=== PATIENT | male | born 1955 ===

== ENCOUNTER → 2018-04-16 07:58 | Outpatient (CLI) | payer OTHER, SELFPAY ==
[2018-04-16 08:31] LABS: Add Manual Diff / Slide Review NO; Basophils Percent Auto 1.4 % (0-2); Eosinophils Percent Auto 3.5 % (2-4); Hematocrit 42.7 % (41-53); Hemoglobin 14.5 g/dL (13.5-17.5); Lymphocytes Percent Auto 32.8 % (25-40); Mean Corpuscular Volume 91.2 fL (80-100); Monocytes Percent Auto 13.7 % (3-14); Neutrophils Absolute Auto 2400 /uL (3000-5900); Neutrophils Percent Auto 48.6 % (50-75); Platelet Count 146 X10^3/uL (150-400); Red Blood Cell Count 4.68 X10^6/uL (4.5-5.9); Red Cell Distribution Width 13.2 % (11.6-14.8); White Blood Cell Count 4.9 X10^3/uL (4.5-11.0)
[2018-04-16 08:45] LABS: Alanine Aminotransferase 29 IU/L (21-72); Albumin 4.2 g/dL (3.5-5.0); Albumin Globulin Ratio 1.5 (1.0-2.8); Alkaline Phosphatase 47 U/L (38-126); Aspartate Aminotransferase 26 IU/L (17-59); BUN Creatinine Ratio 14.5 (6-22); Bilirubin Total 0.5 mg/dL (0.2-1.3); Blood Urea Nitrogen 16 mg/dL (9-20); Carbon Dioxide 29 mmol/L (22-32); Chloride 102 mmol/L (98-107); Cholesterol 192 mg/dL (140-199); Estimated Glomerular Filt Rate > 60.0 mL/min (>60); Globulin 2.8 g/dL (1.7-4.1); Glucose 100 mg/dL (80-110); HDL Cholesterol 45 mg/dL (40-60); HEMOLYSIS < 15 (0-50); LDL Cholesterol Calculated 126 mg/dL (<100); Potassium 4.2 mmol/L (3.4-5.1); Sodium 140 mmol/L (137-145); Triglycerides 105 mg/dL (35-150)
[2018-04-16 09:53] LABS: TSH w/ Reflex to FT4 3.57 uIU/mL (0.47-4.68)
== END ==
PROVIDERS: PCP Family Medicine; Visit Provider Family Medicine
DX: E03.9 Hypothyroidism, unspecified (principal); I10 Essential (primary) hypertension
CPT/HCPCS: 80053; 80061; 84443; 85025

== ENCOUNTER → 2018-04-19 09:59 | Outpatient (CLI) | payer OTHER, SELFPAY ==
[2018-04-19 11:37] LABS: Prostate Specific Antigen Scrn 1.01 ng/mL (0.1-4.0)
== END ==
PROVIDERS: Family Provider Family Medicine; PCP Family Medicine; Visit Provider Family Medicine
DX: R35.1 Nocturia (principal)
CPT/HCPCS: 36415; G0103

== ENCOUNTER → 2018-05-04 08:14 | Outpatient (CLI) | payer OTHER, SELFPAY ==
--- NOTE | 2018-05-04 08:15 | DI.US.S_ITS ---
PROCEDURE: US THYROID INDICATIONS: hypothyroid TECHNIQUE: Real-time scanning was performed of the thyroid gland, with image documentation. COMPARISON: None. FINDINGS: Right: Thyroid lobe measures 1.3 x 1.4 x 3.9 cm, and is homogeneous in echotexture. Left: Thyroid lobe measures 1.2 x 1.3 x 3.7 cm, and is homogenous in echotexture. Isthmus: 4 mm thick. IMPRESSION: 1. Thyroid is normal in size. No measurable nodules on either side. Echotexture is heterogeneous. ACR TI-RADS definitions and recommendations: TI-RADS 1 (benign): 0 points. FNA not needed. TI-RADS 2 (not suspicious): 2 points. FNA not needed. TI-RADS 3 (mildly suspicious): 3 points. * FNA if 2.5 cm or larger, follow up if 1.5 cm or larger (at 1, 3, and 5 years). TI-RADS 4 (moderately suspicious): 4-6 points. * FNA if 1.5 cm or larger, follow up if 1 cm or larger (at 1, 2, 3, and 5 years). TI-RADS 5 (highly suspicious): 7 points or more. * FNA if 1 cm or larger, follow up if 0.5 cm or larger (every year for 5 years). Dictated by: Bola Barrera M.D. on 05/04/2018 at 10:26 Approved by: Bola Barrera M.D. on 05/04/2018 at 10:28
== END ==
PROVIDERS: Family Provider Family Medicine; PCP Family Medicine; Visit Provider Family Medicine
DX: E03.9 Hypothyroidism, unspecified (principal)
CPT/HCPCS: 76536

== ENCOUNTER → 2019-04-05 07:26 | Outpatient (CLI) | payer OTHER, SELFPAY ==
[2019-04-05 08:56] LABS: Hematocrit 41.5 % (41-53); Hemoglobin 14.2 g/dL (13.5-17.5); Mean Corpuscular HGB Conc 34.3 % (30-36); Mean Corpuscular Hemoglobin 31.3 PG (26-34); Mean Corpuscular Volume 91.4 fL (80-100); Red Blood Cell Count 4.54 X10^6/uL (4.5-5.9); Red Cell Distribution Width 13.4 % (11.6-14.8); White Blood Cell Count 5.8 X10^3/uL (4.5-11.0)
[2019-04-05 08:57] LABS: Alanine Aminotransferase 21 IU/L (21-72); Albumin 4.3 g/dL (3.5-5.0); Albumin Globulin Ratio 1.6 (1.0-2.8); Alkaline Phosphatase 47 U/L (38-126); Aspartate Aminotransferase 33 IU/L (17-59); BUN Creatinine Ratio 13.3 (6-22); Bilirubin Total 0.8 mg/dL (0.2-1.3); Blood Urea Nitrogen 16 mg/dL (9-20); Calcium 8.9 mg/dL (8.4-10.2); Carbon Dioxide 29 mmol/L (22-32); Chloride 102 mmol/L (98-107); Cholesterol 179 mg/dL (140-199); Estimated Glomerular Filt Rate > 60.0 mL/min (>60); Globulin 2.7 g/dL (1.7-4.1); Glucose 94 mg/dL (80-110); HDL Cholesterol 47 mg/dL (40-60); HEMOLYSIS < 15 (0-50); LDL Cholesterol Calculated 115 mg/dL (<100); Potassium 3.9 mmol/L (3.4-5.1); Sodium 139 mmol/L (137-145); Triglycerides 87 mg/dL (35-150)
[2019-04-05 09:49] LABS: Creatinine Urine Random 129.6 mg/dL
[2019-04-05 09:52] LABS: Microalbumi Creatinin Ratio Ur 4.6 ug/mg CR (<30); Microalbumin Urine Random < 0.6 mg/dL (0-1.6)
[2019-04-05 10:23] LABS: Thyroid Stimulating Hormone 4.03 uIU/mL (0.47-4.68)
== END ==
PROVIDERS: Visit Provider Nurse Practitioner Family
DX: I10 Essential (primary) hypertension (principal); E78.2 Mixed hyperlipidemia; E03.9 Hypothyroidism, unspecified
CPT/HCPCS: 36415; 80053; 80061; 82043; 82570; 84443; 85027

== ENCOUNTER → 2020-04-18 08:22 | Outpatient (CLI) | payer OTHER, SELFPAY ==
[2020-04-18 09:43] LABS: HEMOLYSIS < 15 (0-50)
[2020-04-18 09:44] LABS: Blood Urea Nitrogen 23 mg/dL (9-20); Calcium 9.3 mg/dL (8.4-10.2); Carbon Dioxide 29 mmol/L (22-32); Chloride 98 mmol/L (98-107); Cholesterol 196 mg/dL (140-199); Estimated Glomerular Filt Rate > 60.0 mL/min (>60); Glucose 92 mg/dL (80-110); HDL Cholesterol 46 mg/dL (40-60); LDL Cholesterol Calculated 129 mg/dL (<100); Sodium 135 mmol/L (137-145); Triglycerides 107 mg/dL (35-150)
[2020-04-18 09:57] LABS: Hematocrit 43.3 % (41-53); Hemoglobin 14.6 g/dL (13.5-17.5); Mean Corpuscular HGB Conc 33.8 % (30-36); Mean Corpuscular Hemoglobin 31.2 PG (26-34); Mean Corpuscular Volume 92.3 fL (80-100); Red Blood Cell Count 4.69 X10^6/uL (4.5-5.9); Red Cell Distribution Width 13.1 % (11.6-14.8); White Blood Cell Count 5.6 X10^3/uL (4.5-11.0)
[2020-04-18 10:42] LABS: Thyroid Stimulating Hormone 4.73 uIU/mL (0.47-4.68)
== END ==
PROVIDERS: PCP Nurse Practitioner Family; Referring Provider Nurse Practitioner Family; Visit Provider Nurse Practitioner Family
DX: Z00.00 Encounter for general adult medical examination without abnormal findings (principal); E78.2 Mixed hyperlipidemia; E03.9 Hypothyroidism, unspecified; I10 Essential (primary) hypertension
CPT/HCPCS: 36415; 80048; 80061; 84443; 85027

== ENCOUNTER → 2020-04-22 07:35 | Outpatient (CLI) | payer OTHER, SELFPAY ==
--- NOTE | 2020-04-22 07:36 | DI.US.S_ITS ---
PROCEDURE: US SCROTUM INDICATIONS: lump right scrotum TECHNIQUE: Real-time scanning was performed of the scrotum and testicles, with image documentation. Color and pulse Doppler interrogation was performed of both testicles. COMPARISON: None. FINDINGS: Right: Testicle is normal in size at 4.4 x 2.0 x 2.8 cm, and homogenous in echotexture. Epididymis is normal in overall size and morphology. No hydrocele or varicoceles. Overlying scrotal skin is normal in thickness. Note is made of a right-sided epididymal cyst measuring 1.9 x 1.8 x 0.9 centimeters Left: Testicle is normal in size at 4.4 x 2.1 x 2.3 cm, and homogeneous in echotexture. Epididymis is normal in overall size and morphology. No hydrocele or varicoceles. Overlying scrotal skin is normal in thickness. Note is made of a left-sided simple 3 x 5 x 5 millimeter epididymal cyst Doppler: Color and pulse Doppler demonstrate normal and symmetric arterial flow in both testicles. IMPRESSION: Bilateral epididymal cysts are present, larger on the right than the left is noted measuring up to 1.9 centimeters on the right. No testicular mass is found, and the epididymal cysts appears simple in character bilaterally. Dictated by: Kehinde Cervantes M.D. on 04/22/2020 at 11:16 Approved by: Kehinde Cervantes M.D. on 04/22/2020 at 11:18
== END ==
PROVIDERS: PCP Nurse Practitioner Family; Referring Provider Nurse Practitioner Family; Visit Provider Nurse Practitioner Family
DX: N50.89 Other specified disorders of the male genital organs (principal); N50.3 Cyst of epididymis
CPT/HCPCS: 76870

== ENCOUNTER → 2020-09-24 07:14 | Outpatient (CLI) | payer OTHER, SELFPAY ==
--- NOTE | 2020-09-24 07:14 | DI.US.S_ITS ---
PROCEDURE: US SCROTUM INDICATIONS: epidydimal cyst TECHNIQUE: Real-time scanning was performed of the scrotum and testicles, with image documentation. Color and pulse Doppler interrogation was performed of both testicles. COMPARISON: [facility], , US SCROTUM, 04/22/2020, 8:08. FINDINGS: Right: Testicle is normal in size at 4.7 x 2.1 x 2.7 cm, and homogenous in echotexture. Epididymal cyst measuring 2.3 x 0.9 x 1.0 cm, previously 1.9 x 1.8 x 0.9 cm No hydrocele or varicoceles. Overlying scrotal skin is normal in thickness. Left: Testicle is normal in size at 4.7 x 1.8 x 2.8 cm, and homogeneous in echotexture. Left epididymal cyst measuring 5 mm, unchanged. No hydrocele or varicoceles. Overlying scrotal skin is normal in thickness. Doppler: Color and pulse Doppler demonstrate normal and symmetric arterial flow in both testicles. IMPRESSION: Grossly unchanged bilateral epididymal cyst/spermatocele. Dictated by: Javier Casper M.D. on 09/24/2020 at 9:40 Approved by: Javier Casper M.D. on 09/24/2020 at 9:42
== END ==
PROVIDERS: PCP Nurse Practitioner Family; Referring Provider Nurse Practitioner Family; Visit Provider Nurse Practitioner Family
DX: N50.3 Cyst of epididymis (principal); N43.40 Spermatocele of epididymis, unspecified
CPT/HCPCS: 76870

== ENCOUNTER → 2021-03-31 10:11 | Outpatient (CLI) | payer OTHER, SELFPAY ==
[2021-03-31 11:41] LABS: Prostate Specific Antigen 1.11 ng/mL (0.10-4.00)
== END ==
PROVIDERS: PCP Nurse Practitioner Family; Referring Provider Specialist; Visit Provider Specialist
DX: N13.8 Other obstructive and reflux uropathy (principal); N40.1 Benign prostatic hyperplasia with lower urinary tract symptoms
CPT/HCPCS: 36415; 84153

== ENCOUNTER → 2021-05-28 08:07 | Outpatient (CLI) | payer OTHER, SELFPAY ==
[2021-05-28 09:03] LABS: Creatinine Urine Random 96.9 mg/dL
[2021-05-28 09:13] LABS: Microalbumin Urine Random < 0.6 mg/dL (0-1.6)
[2021-05-28 09:28] LABS: Alanine Aminotransferase 13 IU/L (<50); Albumin 4.1 g/dL (3.5-5.0); Albumin Globulin Ratio 1.5 (1.0-2.8); Alkaline Phosphatase 59 U/L (38-126); Aspartate Aminotransferase 27 IU/L (17-59); BUN Creatinine Ratio 12.6 (6-22); Bilirubin Total 0.5 mg/dL (0.2-1.3); Blood Urea Nitrogen 14 mg/dL (9-20); Carbon Dioxide 29 mmol/L (22-32); Chloride 104 mmol/L (98-107); Cholesterol 158 mg/dL (140-199); Estimated Glomerular Filt Rate > 60.0 mL/min (>60); Globulin 2.7 g/dL (1.7-4.1); Glucose 97 mg/dL (80-110); HDL Cholesterol 49 mg/dL (40-60); HEMOLYSIS < 15 (0-50); LDL Cholesterol Calculated 97 mg/dL (<100); Potassium 4.5 mmol/L (3.4-5.1); Sodium 138 mmol/L (137-145); Total Protein 6.8 g/dL (6.3-8.2); Triglycerides 59 mg/dL (35-150)
[2021-05-28 10:26] LABS: Free T4, Direct Thyroxine 1.55 ng/dL (0.78-2.19)
[2021-05-28 10:40] LABS: Thyroid Stimulating Hormone 2.72 uIU/mL (0.47-4.68)
[2021-05-28 15:42] LABS: Hematocrit 42.5 % (41-53); Hemoglobin 14.1 g/dL (13.5-17.5); Mean Corpuscular HGB Conc 33.1 % (30-36); Mean Corpuscular Hemoglobin 30.6 PG (26-34); Mean Corpuscular Volume 92.4 fL (80-100); Platelet Count 164 X10^3/uL (150-400); Red Cell Distribution Width 13.1 % (11.6-14.8); White Blood Cell Count 5.5 X10^3/uL (4.5-11.0)
== END ==
PROVIDERS: PCP Nurse Practitioner Family; Referring Provider Nurse Practitioner Family; Visit Provider Nurse Practitioner Family
DX: Z00.00 Encounter for general adult medical examination without abnormal findings (principal); E03.9 Hypothyroidism, unspecified; I10 Essential (primary) hypertension; E78.2 Mixed hyperlipidemia
CPT/HCPCS: 36415; 80053; 80061; 82043; 82570; 84439; 84443; 85027

== ENCOUNTER → 2021-09-09 15:37 | Outpatient (CLI) | payer OTHER, SELFPAY ==
[2021-09-09 16:51] LABS: Influenza A - CEPHEID Flu A NEGATIVE (NEGATIVE); Influenza B - CEPHEID Flu B NEGATIVE (NEGATIVE)
[2021-09-09 17:03] LABS: COVID19 -Nasal RAPID Negative (Negative)
== END ==
PROVIDERS: PCP Nurse Practitioner Family; Referring Provider Physician Assistant; Visit Provider Physician Assistant
DX: Z20.822 Contact with and (suspected) exposure to COVID-19 (principal); J06.9 Acute upper respiratory infection, unspecified
CPT/HCPCS: 87502; 87635

== ENCOUNTER 2022-08-09 09:50 | Emergency (ER) | payer OTHER, SELFPAY ==
[2022-08-09] VITALS (7 sets, daily range): BP systolic 139–171; BP diastolic 74–87; PULSE 69–105; RESP 20; TEMP 36.4; O2SAT 98–100; BMI 51.5
--- NOTE | 2022-08-09 10:02 | DI.RAD.S_ITS ---
PROCEDURE: XR FINGER LT MIN 2V INDICATIONS: deformity, injury, open wound TECHNIQUE: AP hand, 2 views of the 2nd finger(s) acquired. COMPARISON: None. FINDINGS: Bones: 2nd digit PIP joint dorsal dislocation. Small osseous fragment anterior to the proximal phalangeal head. No suspicious bony lesions. Mild degenerative changes. Soft tissues: Soft tissue swelling at the 2nd digit. No suspicious soft tissue calcifications. IMPRESSION: 2nd digit PIP dorsal dislocation. Probable corner fracture at the 2nd digit middle phalangeal base. Radiographs after relocation may be helpful. Dictated by: Erasmo Perry M.D. on 08/09/2022 at 9:36 Approved by: Erasmo Perry M.D. on 08/09/2022 at 9:40
--- NOTE | 2022-08-09 10:27 | ED.UPPEXIN ---
HPI - Extremity Injury (Upper) General Chief Complaint: Extremity Injury, Upper Stated Complaint: lt pointer injured can see bone Time Seen by Provider: 08/09/22 09:56 Source: patient Mode of arrival: Ambulatory History of Present Illness HPI narrative: 67-year-old male nonsmoker with history of hypothyroid presents with a friend and a chief complaint of an obvious injury to his left index finger suffered just before arrival. He was playing basketball and reached out for a ball and hit the tip of his finger on the ball and now has significant pain with obvious deformity and he is concerned that he can see bone sticking through a laceration. He has inability to move his finger due to mechanical obstruction. His tetanus needs to be updated. He denies any numbness or tingling. He denies other injury. Related Data Previous Rx's Medication Instructions Recorded varicella-zoster glycoE [id number] 0.5 ml IM ONCE #1 ea 04/19/20 adj(PF) 50 mcg/0.5 mL IM susp, kit (Shingrix (PF)) bupropion HCl 100 mg tablet,12 hr 100 mg PO DAILY #90 tabs 06/24/21 sustained-release (Wellbutrin SR) levothyroxine 200 mcg tablet 200 mcg PO DAILY #90 tabs 06/03/22 lisinopril 20 mg tablet 20 mg PO QDAY #90 tabs 06/03/22 levothyroxine 25 mcg tablet 25 mcg PO DAILY #30 tabs 06/29/22 cephalexin 500 mg capsule 500 mg PO Q6H 7 days #28 caps 08/09/22 Allergies Allergy/AdvReac Type Severity Reaction Status Date / Time No Known Drug Allergies Allergy Verified 05/22/21 13:39 Review of Systems Review of Systems Narrative: GENERAL: Denies chills, fatigue, malaise, fever, sweats. HEENT: Denies sinus pain, ear pain, sore throat, difficulty swallowing, dizziness. RESPIRATORY: Denies dyspnea, cough, wheezing, hemoptysis, sputum. CARDIOVASCULAR: Denies chest pain, palpitations, orthopnea, edema, GASTROINTESTINAL: Denies nausea, vomiting, abdominal pain, diarrhea, constipation, melena. : Denies dysuria, frequency, incontinence, hematuria, urinary retention. MUSCULOSKELETAL: See HPI SKIN: See HPI NEUROLOGIC: See HPI PSYCHIATRIC: No concerning psychosocial issues. 12 point review of systems is negative except for those stated above Patient History Medical History Anxiety Bilateral tinnitus BPH w urinary obs/LUTS Conjunctivitis Encounter for screening for malignant neoplasm of prostate Encounter for wellness examination in adult (05/22/21) Epididymal cyst Fever Hearing loss Hypertension Hypothyroidism (~2010) Mixed hyperlipidemia Scrotal mass Surgical History Fractured fibula Family History Father Mitral valve insufficiency, unspecified etiology Fall, initial encounter Aspiration pneumonia, unspecified aspiration pneumonia type, unspecified laterality, unspecified part of lung Bladder cancer Mother Patient's mother is in good health Hypertension Stroke Sister Other specified diabetes mellitus with unspecified complications Patient's sister is in good health Hypertension Social History marital status: number of children: 3 occupational status: employed Smoking Status: Never smoker second hand exposure: Yes (When he was younger) alcohol intake: current (1 glass of wine a night) substance use type: does not use caffeine: Yes Smoking Status: Never smoker alcohol intake frequency: a few times a week Alcohol type: wine Substance Use Type: does not use Exam Narrative Exam Narrative: GEN: AOx3 and in mild distress, GCS 15 EYES: Pupils are equal, round, and reactive to light and accommodation. Extraoccular muscles are intact bilaterally. There is no subconjunctival hemorrhage or exudate. CHEST: Lungs are clear to auscultation bilaterally and free of wheezes, rales, or rhonchi. Heart rate is regular rhythm, there are no murmurs, clicks, rubs, or gallops. There is no chest wall tenderness. ABD: Abdomen is soft and nontender. There is no guarding or rebound. Bowel sounds are normal in all 4 quadrants. There is no mass or organomegaly. EXT: Left index finger with obvious deformity consistent with dislocation, there is a 1 cm laceration on the volar surface with minimal bleeding and visible flexor tendon overlying the PIP. Cap refill less than 2 seconds sensation intact SKIN: Warm, pink, and dry. No erythema or rash Initial Vital Signs Initial Vital Signs: Vital Signs Temperature 97.6 F 08/09/22 09:50 Pulse Rate 105 H 10/30/22 09:50 Respiratory Rate 20 08/09/22 09:50 Blood Pressure 171/84 H 08/09/22 09:50 Pulse Oximetry 99 08/09/22 09:50 Oxygen Delivery Method 08/09/22 09:50 Procedures Laceration Repair Laceration 1: Site: hand Side (If applicable): left Size (cm): 1.0 Description: linear Depth: simple, single layer Pre-repair: wound explored and cleansed with chlorhexadine Skin layer closed with: nylon Skin layer suture size: 4-0 Number of sutures: 3 Technique: simple, interrupted Nerve Block Nerve Block 1: Time out performed: Yes Side: left Nerve Blocks: digital Procedure Successful: Yes Patient Tolerated Procedure: Well Complications: none Orthopedic Joint Reduction Joint #1: Time Out Performed: Yes Side: left Joint Reduction Location: finger Analgesia: nerve block Local Anesthesia: bupivacaine 0.25% Amount of anesthesic used (mL): 6 Technique used: direct manipulation Post-reduction neuro exam: no change Post-reduction vascular: intact Post Reduction X-Ray Obtained: Yes Post Reduction X-Ray Results: reduced Splint Applied: Yes Patient Tolerated Procedure: Well Orthopedic Splinting/Casting Injury #1: Side: left Upper Extremity Injury Location: finger Upper Extremity Immobilizer: aluminum form splint Post splinting neuro exam: intact Post splinting vascular exam: intact Placed by: Nursing Course Orders Ordered: ED Orders 08/09/22 10:02 XR finger LT min 2V Stat 08/09/22 10:35 XR finger LT min 2V Stat Discontinued Medications Bupivacaine HCl (Bupivacaine 0.5% (Pf) Vial) 5 ml SUBCUT NOW ONE Stop: 08/09/22 10:13 Last Admin: 08/09/22 10:52 Dose: 5 ml Diphtheria/Tetanus/Acell Pertussis (Tet,Diph,Pertuss(Acell),Vac/Pf 0.5 Ml Syringe) 0.5 ml IM .ONCE ONE Stop: 08/09/22 10:04 Last Admin: 08/09/22 10:50 Dose: 0.5 ml Consultations Consultation #1: Discussed with on-call orthopedist Dr. Luna, she has reviewed pre and postreduction films and is in agreement with plan to washed thoroughly under sterile conditions and emergency department, loose sutures splint, antibiotics, tetanus update and close follow-up Vital Signs Vital signs: Vital Signs - 8 hr 08/09/22 09:50 08/09/22 09:55 08/09/22 09:56 Temperature 97.6 F Pulse Rate 105 H Respiratory Rate 20 Blood Pressure 171/84 H 171/84 H Pulse Oximetry 99 98 Oxygen Delivery Method Room Air 08/09/22 09:56 08/09/22 10:00 08/09/22 10:00 Temperature Pulse Rate 104 H 98 H Respiratory Rate Blood Pressure 166/83 H Pulse Oximetry 100 98 Oxygen Delivery Method Room Air 08/09/22 10:30 08/09/22 10:30 08/09/22 11:00 Temperature Pulse Rate 75 Respiratory Rate Blood Pressure 144/87 H 139/78 Pulse Oximetry 98 Oxygen Delivery Method 08/09/22 11:00 08/09/22 11:30 08/09/22 11:30 Temperature Pulse Rate 70 69 Respiratory Rate Blood Pressure 154/74 H Pulse Oximetry 99 98 Oxygen Delivery Method MDM - Extremity Injury (Upper) Imaging Data Extremity x-ray #1: Radiologist's Impression: Close Finger X-Ray (Signed) Call,Erasmo - 08/09/22 Finger X-Ray (Signed) Call,Erasmo - 08/09/22 Scrotum Ultrasound (Signed) Javier Casper - 09/24/20 Scrotum Ultrasound (Signed) Kehinde Cervantes - 04/22/20 Thyroid Ultrasound (Signed) Bola Barrera - 05/04/18 [facility]?[place] [address] XRay Report Signed Patient: Sami Kumar MR#: [id number] : 1955 Acct:[id number] Age/Sex: 67 / M Date of Service: 08/09/22 Loc: ED Accession Number: [id number] ?? Procedure: XR finger LT min 2V Ordering Provider: Jean George D.O. PROCEDURE:? XR FINGER LT MIN 2V ? INDICATIONS:? deformity, injury, open wound ? TECHNIQUE:? AP hand, 2 views of the 2nd finger(s) acquired.? ? COMPARISON:? None. ? FINDINGS:? ? Bones:? 2nd digit PIP joint dorsal dislocation.? Small osseous fragment anterior to the proximal phalangeal head.? No suspicious bony lesions.? Mild degenerative changes.? ? Soft tissues:? Soft tissue swelling at the 2nd digit.? No suspicious soft tissue calcifications.? ? IMPRESSION:? 2nd digit PIP dorsal dislocation. Probable corner fracture at the 2nd digit middle phalangeal base. ? Radiographs after relocation may be helpful. ? ? Dictated by: Erasmo Perry M.D. on 08/09/2022 at 9:36 ? ? Approved by: Erasmo Perry M.D. on 08/09/2022 at 9:40 ? Extremity x-ray #2: Radiologist's Impression: [place] [address] XRay Report Signed Patient: Sami Kumar MR#: [id number] : 1955 Acct:[id number] Age/Sex: 67 / M Date of Service: 08/09/22 Loc: ED Accession Number: [id number] ?? Procedure: XR finger LT min 2V Ordering Provider: Jean George D.O. PROCEDURE:? XR FINGER LT MIN 2V ? INDICATIONS:? post reduction ? TECHNIQUE:? AP hand, 2 views of the 2nd finger(s) acquired.? ? COMPARISON:? [facility], CR, XR FINGER LT MIN 2V, 08/09/2022, 10:00. ? FINDINGS:? ? Bones:? Relocation of the 2nd digit PIP joint.? Small osseous fragment at the proximal phalangeal head.? No fracture is appreciated at the middle phalanx.? No suspicious bony lesions.? ? Soft tissues:? No suspicious soft tissue calcifications.? ? IMPRESSION:? Relocation of the 2nd digit PIP joint. ? Possible fracture at the 2nd digit proximal phalangeal head. ? ? Dictated by: Erasmo Perry M.D. on 08/09/2022 at 9:51 ? ? Approved by: Erasmo Perry M.D. on 08/09/2022 at 9:54 ? Discharge Plan Departure Patient Disposition: Home Clinical Impression: Open fracture dislocation of finger Instructions: DI for Open Fracture Activity Restrictions/Additional Instructions: *You have been diagnosed with [left index finger open dislocation with small fracture segment *What to do: *Please continue to take your regular medications as directed. [ x] New medication prescriptions sent to your pharmacy: [[facility]] [ ] New medication written as a paper prescription [x] Tylenol and occasional Motrin for pain *Please follow up with [Jeremy ] of [facility] in 2-3 days, call for an appointment. Let them know you were seen in the Emergency Department and that we ask that you be seen in follow up. We will electronically transmit a record of today's note if your PCP is in our system *Return to Emergency Department if you should have any new, worsening or concerning symptoms, such as [worsening pain, significant swelling, cold extremities, numbness, tingling, weakness or other bothersome symptoms Splint Care: Keep splint clean and dry. Elevated affected body part to decrease swelling. OK to use ice pack on the affected body part. Use for 15-20 minutes each time, for 5-6x per day. If you develop worsening pain, numbness, tingling, discoloration of the affected body part, loosen the splint by loosening the ADALI wrap, and either see your doctor for an urgent re-assessment, or return to the Emergency Department. Return to the Emergency Department for any new or worsening symptoms. Prescriptions: New cephalexin 500 mg capsule 500 mg PO Q6H 7 Days Qty: 28 0RF No Action bupropion HCl [Wellbutrin SR] 100 mg tablet sustained-release 12 hr 100 mg PO DAILY Qty: 90 2RF levothyroxine 200 mcg tablet 200 mcg PO DAILY Qty: 90 3RF lisinopril 20 mg tablet 20 mg PO QDAY Qty: 90 3RF levothyroxine 25 mcg tablet 25 mcg PO DAILY Qty: 30 0RF Rx Instructions: NEED TO ESTABLISH CARE WITH NEW PROVIDER FOR FURTHER REFILLS. 05/26/22 Shingrix (PF) 50 mcg/0.5 mL suspension for reconstitution 0.5 ml IM ONCE Qty: 1 0RF Rx Instructions: as a single dose Referrals: Rachele Luna MD [Physician] - Carlos Mistry DO [Primary Care Provider] -
--- NOTE | 2022-08-09 10:35 | DI.RAD.S_ITS ---
PROCEDURE: XR FINGER LT MIN 2V INDICATIONS: post reduction TECHNIQUE: AP hand, 2 views of the 2nd finger(s) acquired. COMPARISON: [facility], , XR FINGER LT MIN 2V, 08/09/2022, 10:00. FINDINGS: Bones: Relocation of the 2nd digit PIP joint. Small osseous fragment at the proximal phalangeal head. No fracture is appreciated at the middle phalanx. No suspicious bony lesions. Soft tissues: No suspicious soft tissue calcifications. IMPRESSION: Relocation of the 2nd digit PIP joint. Possible fracture at the 2nd digit proximal phalangeal head. Dictated by: Erasmo Perry M.D. on 08/09/2022 at 9:51 Approved by: Erasmo Perry M.D. on 08/09/2022 at 9:54
[2022-08-09] MEDS: TET,DIPH,PERTUSS(ACELL),VAC/PF 0.5 ML SYRINGE IM (10:50)
[2022-08-09] MEDS: BUPIVACAINE 0.5% (PF) VIAL 5 ML SUBCUT (10:52)
--- NOTE | 2022-08-09 11:16 | PC.NURSE ---
Pt states he was at the gym today playing basketball and injured left-hand finger when catching the basketball.
== END 2022-08-09 11:44 | disposition home or self-care (01) ==
PROVIDERS: Emergency Provider Emergency Medicine; PCP Family Medicine
DX: S62.611A Displaced fracture of proximal phalanx of left index finger, initial encounter for closed fracture (principal); S61.211A Laceration without foreign body of left index finger without damage to nail, initial encounter; W21.05XA Struck by basketball, initial encounter; Z23 Encounter for immunization
CPT/HCPCS: 12001; 26755; 64450; 73140; 99283; 99284; 90715

== ENCOUNTER → 2022-10-08 07:25 | Outpatient (CLI) | payer OTHER, SELFPAY ==
[2022-10-08 08:27] LABS: Basophils Absolute Auto 100 /uL (0-100); Basophils Percent Auto 1.2 % (0-2); Eosinophils Absolute Auto 200 /uL (0-450); Eosinophils Percent Auto 2.8 % (2-4); Hematocrit 42.6 % (41-53); Hemoglobin 14.5 g/dL (13.5-17.5); Lymphocytes Absolute Auto 1500 /uL (1100-4500); Lymphocytes Percent Auto 25.4 % (25-40); Mean Corpuscular HGB Conc 34.1 % (30-36); Mean Corpuscular Volume 90.9 fL (80-100); Monocytes Absolute Auto 1100 /uL (0-900); Monocytes Percent Auto 18.3 % (3-14); Neutrophils Absolute Auto 3100 /uL (1500-7000); Neutrophils Percent Auto 52.3 % (50-75); Red Blood Cell Count 4.68 X10^6/uL (4.5-5.9); Red Cell Distribution Width 13.5 % (11.6-14.8); White Blood Cell Count 5.9 X10^3/uL (4.5-11.0)
[2022-10-08 08:29] LABS: Add Manual Diff / Slide Review SLIDE REVIEW
[2022-10-08 08:44] LABS: Alanine Aminotransferase 18 IU/L (<50); Albumin 4.2 g/dL (3.5-5.0); Albumin Globulin Ratio 1.7 (1.0-2.8); Alkaline Phosphatase 52 U/L (38-126); Aspartate Aminotransferase 27 IU/L (17-59); BUN Creatinine Ratio 11.9 (6-22); Bilirubin Total 0.7 mg/dL (0.2-1.3); Blood Urea Nitrogen 14 mg/dL (9-20); Calcium 8.7 mg/dL (8.4-10.2); Carbon Dioxide 29 mmol/L (22-32); Chloride 99 mmol/L (98-107); Cholesterol 206 mg/dL (140-199); Estimated Glomerular Filt Rate > 60 mL/min (>60); Globulin 2.5 g/dL (1.7-4.1); Glucose 92 mg/dL (80-110); HDL Cholesterol 54 mg/dL (40-60); HEMOLYSIS < 15 (0-50); LDL Cholesterol Calculated 131 mg/dL (<100); Potassium 4.4 mmol/L (3.4-5.1); Sodium 136 mmol/L (137-145); Total Protein 6.7 g/dL (6.3-8.2); Triglycerides 106 mg/dL (35-150)
[2022-10-08 08:57] LABS: Free T3, Triiodothyronine Free 3.71 pg/mL (2.77-5.27); Free T4, Direct Thyroxine 1.52 ng/dL (0.78-2.19)
[2022-10-08 09:12] LABS: Thyroid Stimulating Hormone 6.12 uIU/mL (0.47-4.68)
[2022-10-08 09:41] LABS: RBC Morphology Normal Morphology
== END ==
PROVIDERS: PCP Family Medicine; Referring Provider Family Medicine; Visit Provider Family Medicine
DX: Z00.00 Encounter for general adult medical examination without abnormal findings (principal); E03.9 Hypothyroidism, unspecified; E78.2 Mixed hyperlipidemia; I10 Essential (primary) hypertension
CPT/HCPCS: 36415; 80053; 80061; 84439; 84443; 84481; 85025

== ENCOUNTER → 2022-11-21 07:51 | Outpatient (CLI) | payer OTHER, SELFPAY ==
[2022-11-21 10:01] LABS: TSH w/ Reflex to FT4 0.89 uIU/mL (0.47-4.68)
== END ==
PROVIDERS: PCP Family Medicine; Referring Provider Family Medicine; Visit Provider Family Medicine
DX: E03.9 Hypothyroidism, unspecified (principal)
CPT/HCPCS: 36415; 84443

== ENCOUNTER → 2023-11-27 08:06 | Outpatient (CLI) | payer OTHER, SELFPAY ==
[2023-11-27 09:41] LABS: Alanine Aminotransferase 23 IU/L (<50); Albumin 4.1 g/dL (3.5-5.0); Albumin Globulin Ratio 1.3 (1.0-2.8); Alkaline Phosphatase 55 U/L (38-126); Aspartate Aminotransferase 28 IU/L (17-59); BUN Creatinine Ratio 16.2 (6-22); Bilirubin Total 0.8 mg/dL (0.2-1.3); Blood Urea Nitrogen 17 mg/dL (9-20); Calcium 8.5 mg/dL (8.4-10.2); Carbon Dioxide 28 mmol/L (22-32); Chloride 102 mmol/L (98-107); Cholesterol 152 mg/dL (140-199); Estimated Glomerular Filt Rate > 60 mL/min (>60); Globulin 3.1 g/dL (1.7-4.1); Glucose 92 mg/dL (80-110); HDL Cholesterol 37 mg/dL (40-60); HEMOLYSIS < 15 (0-50); LDL Cholesterol Calculated 98 mg/dL (<100); Potassium 4.1 mmol/L (3.4-5.1); Sodium 138 mmol/L (137-145); Total Protein 7.2 g/dL (6.3-8.2); Triglycerides 85 mg/dL (35-150)
[2023-11-27 09:47] LABS: Basophils Absolute Auto 0 /uL (0-100); Basophils Percent Auto 0.8 % (0-2); Eosinophils Absolute Auto 100 /uL (0-450); Hemoglobin 14.4 g/dL (13.5-17.5); Lymphocytes Absolute Auto 1200 /uL (1100-4500); Lymphocytes Percent Auto 23.9 % (25-40); Mean Corpuscular HGB Conc 34.3 % (30-36); Mean Corpuscular Hemoglobin 30.7 PG (26-34); Mean Corpuscular Volume 89.5 fL (80-100); Monocytes Absolute Auto 800 /uL (0-900); Monocytes Percent Auto 15.5 % (3-14); Neutrophils Absolute Auto 2800 /uL (1500-7000); Neutrophils Percent Auto 57.8 % (50-75); Red Blood Cell Count 4.69 X10^6/uL (4.5-5.9); Red Cell Distribution Width 12.8 % (11.6-14.8); White Blood Cell Count 4.8 X10^3/uL (4.5-11.0)
[2023-11-27 09:49] LABS: Add Manual Diff / Slide Review SLIDE REVIEW; Platelet Count 84 X10^3/uL (150-400)
[2023-11-27 10:42] LABS: TSH w/ Reflex to FT4 1.87 uIU/mL (0.47-4.68)
[2023-11-27 11:33] LABS: RBC Morphology Normal Morphology
== END ==
LOC: LAB 08:08
PROVIDERS: PCP Family Medicine; Referring Provider Family Medicine; Visit Provider Family Medicine
DX: I10 Essential (primary) hypertension (principal); E03.9 Hypothyroidism, unspecified; E78.2 Mixed hyperlipidemia
CPT/HCPCS: 36415; 80053; 80061; 84443; 85025

== ENCOUNTER → 2024-11-25 08:02 | Outpatient (CLI) | payer MEDICARE, SELFPAY ==
[2024-11-25 09:27] LABS: Add Manual Diff / Slide Review NO; Basophils Absolute Auto 100 /uL (0-100); Basophils Percent Auto 1.1 % (0-2); Eosinophils Absolute Auto 100 /uL (0-450); Eosinophils Percent Auto 2.9 % (2-4); Lymphocytes Absolute Auto 1300 /uL (1100-4500); Mean Corpuscular HGB Conc 33.2 % (30-36); Mean Corpuscular Hemoglobin 30.9 PG (26-34); Mean Corpuscular Volume 92.9 fL (80-100); Monocytes Absolute Auto 700 /uL (0-900); Monocytes Percent Auto 13.9 % (3-14); Neutrophils Absolute Auto 2600 /uL (1500-7000); Neutrophils Percent Auto 54.1 % (50-75); Platelet Count 68 X10^3/uL (150-400); Red Blood Cell Count 4.52 X10^6/uL (4.5-5.9); Red Cell Distribution Width 13.6 % (11.6-14.8); White Blood Cell Count 4.8 X10^3/uL (4.5-11.0)
[2024-11-25 09:38] LABS: Alanine Aminotransferase 17 IU/L (<50); Albumin 4.2 g/dL (3.5-5.0); Albumin Globulin Ratio 1.8 (1.0-2.8); Alkaline Phosphatase 49 U/L (38-126); Aspartate Aminotransferase 30 IU/L (17-59); BUN Creatinine Ratio 12.2 (6-22); Bilirubin Total 0.5 mg/dL (0.2-1.3); Blood Urea Nitrogen 14 mg/dL (9-20); Calcium 9.2 mg/dL (8.4-10.2); Carbon Dioxide 29 mmol/L (22-32); Chloride 105 mmol/L (98-107); Cholesterol 182 mg/dL (140-199); Estimated Glomerular Filt Rate > 60 mL/min (>60); Globulin 2.3 g/dL (1.7-4.1); Glucose 97 mg/dL (80-110); HDL Cholesterol 56 mg/dL (40-60); HEMOLYSIS < 15 (0-50); LDL Cholesterol Calculated 111 mg/dL (<100); Potassium 4.8 mmol/L (3.4-5.1); Sodium 138 mmol/L (137-145); Total Protein 6.5 g/dL (6.3-8.2); Triglycerides 74 mg/dL (35-150)
[2024-11-25 10:07] LABS: TSH w/ Reflex to FT4 2.75 uIU/mL (0.47-4.68)
[2024-11-25 10:09] LABS: Prostate Specific Antigen Scrn 1.46 ng/mL (0.1-4.0)
== END ==
LOC: LAB 08:05
PROVIDERS: PCP Family Medicine; Referring Provider Family Medicine; Visit Provider Family Medicine
DX: I10 Essential (primary) hypertension (principal); Z12.5 Encounter for screening for malignant neoplasm of prostate; E03.9 Hypothyroidism, unspecified; E78.2 Mixed hyperlipidemia
CPT/HCPCS: 36415; 80053; 80061; 84443; 85025; G0103